=== PATIENT | male | born 1950 | race Caucasian/White ===

== ENCOUNTER 2017-03-16 08:01 | Day surgery (SDC) | payer OTHER, MEDICARE ==
[2017-03-16] MEDS ORDERED: MIDAZOLAM 2 MG/2 ML VIAL IVP ONE (08:16)
[2017-03-16] MEDS ORDERED: PROPOFOL 200 MG/20 ML VIAL IVP ONE (08:16)
[2017-03-16] MEDS ORDERED: NS 500 ML IV ONE (08:16)
[2017-03-16] MEDS ORDERED: fentaNYL 100 MCG/2 ML INJ IVP ONE (08:16)
[2017-03-16] MEDS ORDERED: BENZOCAINE UNIT DOSE SPRAY HURRICAINE MM ONE (08:16)
--- NOTE | 2017-03-16 08:47 | CPEKG ---
Heart Rate: 108 RR Interval: 556 QRSD Interval: 84 QT Interval: 376 QTC Interval: 504 QRS [place]: 5 T Wave [place]: -25 EKG Severity - ABNORMAL ECG - EKG Impression: ATRIAL FIBRILLATION EKG Impression: BORDERLINE T ABNORMALITIES, INFERIOR LEADS EKG Impression: PROLONGED QT INTERVAL Electronically Signed By: Yao Workman 19-Mar-2017 07:49:30
[2017-03-16 09:19] LABS: ANION GAP 15 mEq/L (8-16); CALCIUM 9.8 mg/dL (8.5-10.4); CARBON DIOXIDE 24 mEq/l (22-31); CHLORIDE 101 mEq/L (97-110); CREATININE 1.2 mg/dL (0.7-1.3); GLOMERULAR FILTRATION RATE > 60; GLUCOSE 171 mg/dL (70-100); MAGNESIUM 1.8 mg/dL (1.6-2.3); POTASSIUM 4.4 mEq/L (3.5-5.2); SODIUM 140 mEq/L (134-144)
[2017-03-16] MEDS ORDERED: PROPOFOL 200 MG/20 ML VIAL ONE (09:28)
[2017-03-16 09:36] LABS: APTT 31.6 SEC (23.0-38.0); INR 1.18 (0.83-1.16)
--- NOTE | 2017-03-16 10:00 | CPEKG ---
Heart Rate: 70 RR Interval: 857 P-R Interval: 176 QRSD Interval: 88 QT Interval: 416 QTC Interval: 449 P [place]: 22 QRS [place]: -10 T Wave [place]: -34 EKG Severity - ABNORMAL ECG - EKG Impression: SINUS RHYTHM EKG Impression: SUPRAVENTRICULAR BIGEMINY EKG Impression: BORDERLINE R WAVE PROGRESSION, ANTERIOR LEADS Electronically Signed By: Yao Workman 19-Mar-2017 07:50:25
--- NOTE | 2017-03-16 10:04 | PDANEPAE ---
ANE History of Present Illness h/o A fib new onset ANE Past Medical History - Cardiovascular History Hx Hypertension: Yes Hx Arrhythmias: Yes Hx Chest Pain: No Hx Coronary Artery / Peripheral Vascular Disease: No Hx CHF / Valvular Disease: No Hx Palpitations: Yes - Pulmonary History Hx COPD: No Hx Asthma/Reactive Airway Disease: No Hx Recent Upper Respiratory Infection: No Hx Oxygen in Use at Home: No Hx Sleep Apnea: Yes - Endocrine History Hx Diabetes: Yes Hypothyroid: Yes Obesity: yes ANE Review of Systems Review of systems is: negative - Exercise capacity Exercise capacity: >=4 METS ANE Patient History - Allergies Allergies/Adverse Reactions: No Known Allergies Allergy (Unverified 11/22/15 17:23) - Home Medications Home medications: home medication list seen and reviewed - Anes Hx Anes Hx: no prior problems - Smoking Hx Smoking Status: Never smoked ANE Labs/Vital Signs - Labs Result Diagrams: 03/16/17 08:55 ANE Physical Exam - Airway Neck exam: FROM Mallampati Score: Class 1 Mouth exam: normal dental/mouth exam - Pulmonary Pulmonary: no respiratory distress - Cardiovascular Cardiovascular: irregularly irregular - ASA Status ASA Status: III ANE Anesthesia Plan Anesthesia Plan: GA with mask
--- NOTE | 2017-03-16 10:05 | POSTANESTH ---
Post Anesthetic Evaluation Cardiovascular Status: Normal, Stable Respiratory Status: Normal, Stable Level of Consciousness/Mental Status: Can Participate in Eval Pain Control: Adequate, Prn Tx Ordered Nausea/Vomiting Control: Adequate, Prn Tx Ordered Complications Possibly Related to Anesthesia: None Noted
--- NOTE | 2017-03-16 13:33 | CPR ---
[f rep st] NONINVASIVE CARDIAC PROCEDURE REPORT DATE OF PROCEDURE: 03/16/2017 PROCEDURE PERFORMED: Electrical cardioversion procedure. INDICATIONS: Atrial fibrillation and shortness of breath. CONSENT: Signed. Risks, benefits, and alternatives discussed with patient. He wishes to proceed w ith the procedure. TECHNICAL DIFFICULTIES: None. DESCRIPTION OF PROCEDURE AND RESULTS: Immediately beforehand, a transesophageal echo was done with sedation by Anesthesia. It demonstrated no evidence of cardiac thrombus. He was initially in atria l fibrillation at a ventricular rate of 92 beats per minute and a blood pressure of 126/83. With ad equate deep sedation, he received a single 250 joule synchronized shock with AP pads. This converte d him to sinus rhythm at 73 beats per minute with a post cardioversion blood pressure of 104/71. He awoke from sedation with no new neurological deficits. COMPLICATIONS: None. FINAL IMPRESSIONS: Successful cardioversion of atrial fibrillation to sinus rhythm with single 250 joule synchronized shock. NOTE: The transesophageal echo demonstrated yqnokudu-ac-eshakw mitral regurgitation with anterior m itral valve leaflet pathology. He will get a repeat transthoracic echo in 10 days and see me in [place] in 2 weeks with an EKG. He may be working his way toward mitral valve repair surgery soon. /[id number]/MODL
--- NOTE | 2017-03-19 12:18 | ECHO ---
[id number] + + [address] : : [facility] [address] : : [phone] + + Transesophageal Echocardiographic Report + + :Name: CALVIN WALSH Study Date: 03/16/2017 09:35 AM : : Hospital Admission Number: [id number] : :: 1950 Gender: Male : :Age: 66 yrs Race: WH : :Reason For Study: Eval LV Fx : :History: New onset Atrial Fibrillation : + + Left Ventricle Ejection Fraction = 50-55%. Right Ventricle The right ventricular systolic function is normal. Atria Injection of contrast documented no interatrial shunt. The interatrial septum is intact with no evidence for an atrial septal defect. No left atrial mass or thrombus visualized. No thrombus is detected in the left atrial appendage. Mitral Valve There is a ruptured mitral valve chordae with a flail anterior leaflet. There is no mitral valve stenosis. Moderate to severe MR. Tricuspid Valve There is mild to moderate tricuspid regurgitation. Aortic Valve The aortic valve is normal in structure and function. The aortic valve is trileaflet. There is no aortic stenosis. There is no aortic insufficiency. Pulmonic Valve The pulmonic valve is normal in structure and function. Vessels Normal size ascending thoracic aorta (2.5cm). No dissection flap. Conclusion A 2D transesophageal echocardiogram with color flow Doppler was performed. 1)Low normal LV systolic function with a LVEF of 50-55% and no focal wall motions. 2)Normal RV systolic function. 3)Moderate LAE. 4)No clot in any of four cardiac chambers or BHAVESH. PW 45cm/second in LA appendage. 5)Moderate to severe MR with chordae rupture of A2 with no MAC or MS. 6)Mild-moderate TR noted. 7)Negative IV bubble study. No PFO or ASD. 8)Normal size ascending thoracic aorta (2.5cm) without atheroma or dissection flap. Final Reading Physician: Dave Wang electronically signed on 03/19/2017 12:17 PM Ordering Physician: Dave Wang Performed By: Dave Wang
== END 2017-03-16 13:09 | disposition home or self-care (01) ==
LOC: FCATH 08:01
PROVIDERS: ATTEND Internal Medicine Cardiovascular Disease
PROC: B246ZZ4 Ultrasonography of Right and Left Heart, Transesophageal (ICD-10-PCS; principal; 2017-03-16)
PROC: 5A2204Z Restoration of Cardiac Rhythm, Single (ICD-10-PCS; principal; 2017-03-16)
DX: I48.91 Unspecified atrial fibrillation (principal); I34.0 Nonrheumatic mitral (valve) insufficiency; E11.9 Type 2 diabetes mellitus without complications; E78.5 Hyperlipidemia, unspecified; E03.9 Hypothyroidism, unspecified; K21.9 Gastro-esophageal reflux disease without esophagitis; G47.33 Obstructive sleep apnea (adult) (pediatric); I10 Essential (primary) hypertension
CPT/HCPCS: J2704

== ENCOUNTER → 2017-03-28 | Outpatient (CLI) | payer OTHER, MEDICARE | LOC: BHFA 11:30 | PROVIDERS: ATTEND Internal Medicine Cardiovascular Disease | DX: I48.91 Unspecified atrial fibrillation (principal) ==

== ENCOUNTER 2017-04-17 13:42 | Observation (INO) | payer OTHER, MEDICARE ==
[2017-04-17] MEDS ORDERED: FAMOTIDINE 20 MG TAB PO ONE (13:47)
[2017-04-17] MEDS ORDERED: diphenhydrAMINE 25 MG CAP PO ONE (13:47)
[2017-04-17] MEDS ORDERED: ASPIRIN EC 325 MG TAB PO ONE (13:47)
[2017-04-17] MEDS ORDERED: DIAZEPAM 5 MG TAB PO ONE (13:47)
[2017-04-17] MEDS ORDERED: NS 1,000 ML IV ONE (13:47)
[2017-04-17 14:30] LABS: % IMMATURE GRANULYOCYTES 0.4 % (0.0-1.1); ABSOLUTE IMMATURE GRANULOCYTES 0.03 10^3/uL (0.00-0.10); ADD DIFF? NO; ADD MORPH? NO; ADD SCAN? NO; ATYPICAL LYMPHOCYTE FLAG 0 (0-99); FRAGMENT RBC FLAG 0 (0-99); HEMATOCRIT 50.8 % (40.0-51.0); HEMOGLOBIN 17.5 g/dL (13.7-17.5); LEFT SHIFT FLG 0 (0-99); LIPEMIA HEMOLYSIS FLAG 90 (0-99); MEAN CELL HEMOGLOBIN 30.8 pg (27.9-34.1); MEAN CELL HEMOGLOBIN CONCENTR. 34.4 g/dL (32.4-36.7); MEAN CELL VOLUME 89.3 fL (81.5-99.8); MEAN PLATELET VOLUME 11.2 fL (8.7-11.7); PLATELET CLUMPS FLAG 20 (0-99); PLATELET COUNT 248 10^3/uL (150-400); RED BLOOD CELL COUNT 5.69 10^6/uL (4.40-6.38); RED CELL DISTRIBUTION WIDTH 12.9 % (11.5-15.2)
[2017-04-17 14:42] LABS: INR 0.99 (0.83-1.16)
--- NOTE | 2017-04-17 14:47 | CPEKG ---
Heart Rate: 86 RR Interval: 698 QRSD Interval: 96 QT Interval: 400 QTC Interval: 479 QRS [place]: 12 T Wave [place]: -24 EKG Severity - ABNORMAL ECG - EKG Impression: ATRIAL FIBRILLATION EKG Impression: BORDERLINE T ABNORMALITIES, INFERIOR LEADS Electronically Signed By: Celso Gonzalez 17-Apr-2017 15:15:57
[2017-04-17 14:52] LABS: ANION GAP 14 mEq/L (8-16); CALCIUM 10.2 mg/dL (8.5-10.4); CARBON DIOXIDE 25 mEq/l (22-31); CHLORIDE 101 mEq/L (97-110); CHOLESTEROL 157 mg/dL (140-220); CHOLESTEROL/HDL RATIO 3.27 RATIO (1.00-4.97); CREATININE 1.3 mg/dL (0.7-1.3); GLOMERULAR FILTRATION RATE 55; GLUCOSE 252 mg/dL (70-100); HIGH DENSITY LIPOPROTEIN 48 mg/dL (40-65); LDL/HDL RATIO 1.83 RATIO (1.00-3.64); LOW DENSITY LIPOPROTEIN 88 mg/dL (80-100); MAGNESIUM 1.9 mg/dL (1.6-2.3); NON-HIGH DENSITY LIPOPROTEIN 109 mg/dL (90-129); POTASSIUM 4.1 mEq/L (3.5-5.2); SODIUM 140 mEq/L (134-144); TRIGLYCERIDE 107 mg/dL (40-150); VERY LOW DENSITY LIPOPROTEINS 21 mg/dL (8-25)
[2017-04-17] MEDS ORDERED: LIDOCAINE 1% 300 MG/30 ML SDV ONE (15:09)
[2017-04-17] MEDS ORDERED: fentaNYL 100 MCG/2 ML INJ ONE (15:09)
[2017-04-17] MEDS ORDERED: IOPAMIDOL (ISOVUE-370) 150 ML BTL IV ONE (15:10)
[2017-04-17] MEDS ORDERED: MIDAZOLAM 2 MG/2 ML VIAL ONE (15:10)
--- NOTE | 2017-04-17 16:11 | PDHPUP ---
History & Physical Update H&P update statement: This history and physical update is based on an assessment of the patient which was completed after admission or registration (within 24 hours), but prior to the surgery/procedure. H&P update: H&P reviewed & patient examined, no change in patient's condition since H&P completed
--- NOTE | 2017-04-17 16:12 | PDPROPOC ---
Sedation Plan of Care Sedation Plan of Care: vital signs stable, mental status noted, patient educated of risks, benefits, alternatives, patient can tolerate sedation ASA Classification: ASA 2 Planned drugs: fentanyl, midazolam Mallampati Score: Class 2 Mallampati Reference Image: Patient passed 3-3-2 rule?: Yes
[2017-04-17] MEDS ORDERED: ONDANSETRON 4 MG/2 ML VIAL IVP PRN (17:49)
[2017-04-17] MEDS ORDERED: ONDANSETRON DISINTEGRATING 4 MG TAB PO PRN (17:49)
[2017-04-17] MEDS ORDERED: NITROGLYCERIN 0.4 MG BTL SL PRN (17:49)
[2017-04-17] MEDS ORDERED: ATROPINE SULFATE 1 MG/10 ML SYR IVP PRN (17:49)
[2017-04-17] MEDS ORDERED: HYDROCODONE/APAP 5/325 TAB PO PRN (17:49)
[2017-04-17] MEDS ORDERED: ACETAMINOPHEN 325 MG TAB PO PRN (17:49)
[2017-04-17] MEDS ORDERED: NS 1,000 ML IV SCH (18:00)
[2017-04-17] MEDS ORDERED: NAPROXEN SODIUM 220 MG TAB PO PRN (18:39)
[2017-04-17] MEDS ORDERED: TROLAMINE SALICYLATE 85 GM CRTUBE TP PRN (18:39)
--- NOTE | 2017-04-17 18:45 | PDDXCAT ---
Diagnostic Cath Note - . Date: 04/17/17 Reports Analysis Manager: Dio Supervisor Tunnel Heading: Dio Indication: other (Severe mitral regurgitation, NYHA class II CHF symptoms, and anticipated need for mitral valve repair/replacement.) - Procedure Access: right groin Procedure: left heart catheterization, coronary angiography, left ventriculogram , right heart catheterization - Materials Left Heart Cath size: 6F Left Heart Cath materials: standard multipack (JL4, JR4, pigtail) Right Heart Cath size: 7F Right Heart Cath materials: PWP catheter - Findings-Left Heart Catheterization LM: Normal. LAD: Ectasia and mild irregularites. LCX: Ectasia and mild irregularites. RCA: Ectasia and mild irregularites. EDP: 12 mmHg LVEF: 35% Wall motion: Global hypokinesis. - Findings-Right Heart Catheterization RA: 8 mmHg RV: 28/6 mmHg PA: 30/14/22 mmHg O2 sat 74.0% PAOP: 12 mmHg AO: 166/66/86 mmHg O2 sat 97.3% CO: 3.8 L/min CI: 1.97 L/min/sq mtr Complications: None Estimated blood loss: <50ml Closure method: Angioseal Assessment: 1) Nonischemic cardiomyopathy. 2) Gjp-rgny-edybhsja coronary atherosclerosis.
[2017-04-17] MEDS: APIXABAN 5 MG TAB PO SCH (20:51)
[2017-04-17] MEDS ORDERED: FERROUS SULFATE 325 MG TAB PO SCH (21:00)
[2017-04-17] MEDS ORDERED: CETIRIZINE 10 MG TAB PO SCH (21:00)
[2017-04-17] MEDS ORDERED: PRAVASTATIN SODIUM 10 MG TAB PO SCH (21:00)
[2017-04-18] MEDS ORDERED: LEVOTHYROXINE 100 MCG TAB PO SCH (06:00)
[2017-04-18 07:36] VITALS: BP 130/82; PULSE 83; RESP 21; TEMP 97.8; O2SAT 92
[2017-04-18] MEDS ORDERED: FUROSEMIDE 20 MG TAB PO SCH (09:00)
[2017-04-18] MEDS ORDERED: CYANO/VITAMIN B12 1000 MCG TAB PO SCH (09:00)
[2017-04-18] MEDS ORDERED: glipiZIDE 5 MG TAB PO SCH (09:00)
[2017-04-18] MEDS ORDERED: DILTIAZEM XR 240 MG CAP PO SCH (09:00)
[2017-04-18] MEDS ORDERED: MULTIVITAMINS 1 EACH TAB PO SCH (09:00)
[2017-04-18] MEDS: APIXABAN 5 MG TAB PO SCH (09:47)
[2017-04-18] MEDS ORDERED: FLU VACC QS 2017-18 (3YR+)/PF 0.5 ML SYR (FLUARIX QUAD) IM ONE (10:50)
--- NOTE | 2017-04-18 11:49 | GDS ---
[f rep st] DISCHARGE SUMMARY DISCHARGE DIAGNOSES: 1. Ijyxwpdb-us-bezkuz mitral regurgitation with prolapsing A-2 segment. 2. Cardiomyopathy. 3. Persistent atrial fibrillation. 4. Schatzki' ring present in posterior oropharynx. 5. Type 2 diabetes mellitus. 6. Hypertension. 7. Dyslipidemia. PROCEDURES: 04/17/2017, left and right heart catheterization pre open heart surgery for mitral valve repair. Left heart catheterization showed normal left main with ectasia and mild irregularities pre sent in the left anterior descending, left circumflex, and right coronary artery. Left ventricular e nd-diastolic pressure of 12 mmHg. Left ventricular ejection fraction of 35% with global hypokinesis. Right heart catheterization findings of right atrial pressure of 8 mmHg, right ventricular pressure of 28/6 mmHg, pulmonary artery pressure of 30/14/22 mmHg with oxygen saturation of 74%. PA to PF of 12 mmHg. AO of 166/66/86, cardiac output of 3.8 L/minute. Cardiac index of 1.97 L/minute per sq m. BRIEF HISTORY: Please see dictated H and P from Dr. Wang for complete details. In brief, the patie nt is a 67-year-old male with persistent atrial fibrillation, type 2 diabetes mellitus, and moderate- to-severe MR. He had a right and left heart catheterization pre-surgical evaluation for his moderate -to-severe MR, and results are as dictated above. On day of discharge, patient denies any groin disc omfort, chest pain, or dyspnea. He has noted irregular pulse but has not been feeling syncope or pre syncope. PHYSICAL EXAMINATION: VITAL SIGNS: On day of discharge, blood pressure 130/82, heart rate of 83, re spirations 21, O2 saturation 92% on room air, and temp of 97.8 degrees Fahrenheit. GENERAL: Renzo p leasant man in no apparent distress. EYES: PERRL. HEART: Irregularly irregular. LUNGS: Clear. Right groin site without ecchymosis or bruit present. EXTREMITIES: He has a 2+ PT pulse. LABORATORY DATA: CBC: WBC 7.31, hemoglobin 17.5, hematocrit 50.8, platelet count 248. BMP: Sodium 140, potassium 4.1, chloride 101, CO2 25, BUN 22, creatinine 1.3, glucose 252. NT proBNP of 350. T riglycerides 107, LDL/cholesterol of 88, total cholesterol of 157, and HDL 48. RESULTS PENDING: None. DIET: Per previous. ACTIVITY: Groin precautions reviewed. DISCHARGE MEDICATIONS: Please see med reconciliation for complete details. He is being discharged o n all his home medications. This includes Tylenol, Eliquis, Celebrex, Zyrtec, diltiazem, ferrous sul fate, Lasix, glipizide, levothyroxine, Flonase, naproxen, multivitamin, Aspercreme, simvastatin, and vitamin B12. He is advised to resume his metformin on 04/20/2017 with a.m. dose. DISCHARGE INSTRUCTIONS: 1. Groin precautions as reviewed. 2. Follow up with Dr. Wang as scheduled. 3. Follow up with Dr. Us as scheduled. /[id number]/MODL
--- NOTE | 2017-04-18 15:42 | ASDISCHSUM ---
Discharge Information Plan Status:Home with No Needs Medically Cleared to Leave:04/18/2017 Discharge Date:04/18/2017 11:35 AM CM D/C Disposition: ADT D/C Disposition:Home, Routine, Self-Care Projected Discharge Date:04/18/2017 12:00 AM Transportation at D/C: Discharge Delay Reason: Follow-Up Date:04/18/2017 12:00 AM Discharge Slot: Final Diagnosis: Placement Information Patient Contact Information Contact Name:BOB Relationship: Address[address] City:[place] Alternate Phone: [facility]/Zip Code:[place] [address] Email: Financial Information Financial Class: Primary Plan Desc:MEDICARE OUTPATIENT Primary Plan Number:[id number] Secondary Plan Desc:[employer]/MDR SUPPLEMENT Secondary Plan Number:[id number] Assessment Information Intervention Information Intervention Type:*THOMPSON-Signed Date of Service:04/18/2017 09:31 AM Patient Type:Observation Staff Member:Verónica Hand Hours: Discipline: Severity: Comment:
== END 2017-04-18 11:35 | disposition home or self-care (01) ==
LOC: FCATH 13:42 → F2W 17:49
PROVIDERS: ADMIT Internal Medicine Interventional Cardiology; ATTEND Internal Medicine Interventional Cardiology
DX: I34.0 Nonrheumatic mitral (valve) insufficiency (principal); Z01.810 Encounter for preprocedural cardiovascular examination; I48.1 Persistent atrial fibrillation; I42.9 Cardiomyopathy, unspecified; K22.2 Esophageal obstruction; E11.9 Type 2 diabetes mellitus without complications; Z23 Encounter for immunization
CPT/HCPCS: 90686; 93005; 93460; C1760; G0008; J1644; J2250; J3010; Q9967

== ENCOUNTER → 2017-05-03 | Outpatient (CLI) | payer OTHER, MEDICARE | LOC: BHFA 11:30 | PROVIDERS: ATTEND Internal Medicine Cardiovascular Disease | DX: Z01.818 Encounter for other preprocedural examination (principal) ==

== ENCOUNTER 2017-05-10 06:45 | Inpatient (IN) | payer OTHER, MEDICARE ==
[2017-05-07 13:16] LABS: HEMOGLOBIN A1C 7.4 % (4.0-6.0)
[~2017-05-10 06:45] MED LIST: ADENOSINE 6 MG/2 ML VIAL ONE; ALBUMIN 5% 250 ML BOTTLE IV ONE; AMINOCAPROIC ACID 5 GM/20 ML VIAL IV ONE; AMINOCAPROIC ACID 5 GM/20 ML VIAL ONE; AMIODARONE HCL 150 MG/3 ML VIAL ONE; CALCIUM CHLORIDE 1 GM/10 ML INJ ONE; CITRATE DEXTROSE SOLN 500 ML BAG MISC ONE; CITRATE DEXTROSE SOLN 500 ML BAG ONE; DOBUTamine/DEXTROSE 250 ML IV ONE; DOPamine/DEXTROSE/250 ML BAG IV ONE; HEPARIN 10,000 UNIT/10 ML MDV ONE; INSULIN REGULAR HUMAN 100 UNIT in NS 100 ML IV ONE; LIDOCAINE 1% 5 ML SDV ID PRN; LIDOCAINE 2% 100 MG/5 ML SYR ONE; MAGNESIUM SULFATE 1 GM/2 ML VIAL ONE; MANNITOL 25% 12.5 GM/50 ML VIAL IV ONE; MILRINONE/DEXTROSE/100 ML BAG IV ONE; NA BICARBONATE 50 MEQ/50 ML VIAL ONE; NOREPINEPHRINE BITARTRATE 16 MG in NS 250 ML IV ONE; PHENYLEPHRINE HCL 50 MG in NS 250 ML IV ONE; POTASSIUM Cl (KCl) 20 MEQ/50 ML BAG IV ONE; PROTAMINE SULFATE 50 MG/5 ML VIAL IVP ONE; SODIUM BICARBONATE 20 MEQ, LIDOCAINE 1% 10 ML in NORMOSOL-R 1,000 ML MISC ONE; ceFAZolin 1 GM VIAL ONE; ceFAZolin 2 GM in D5W 100 ML IV ONE; ceFAZolin 2 GM/DEXTROSE 100 ML IV ONE; methylPREDNISolone SOD SUCC 1 GM/8 ML VIAL ONE; niCARdipine/NACL 200 ML IV ONE; niCARdipine/NACL/200 ML BAG IV ONE
[2017-05-10] MEDS ORDERED: LIDOCAINE 1% 2 ML INJ ONE (07:11)
--- NOTE | 2017-05-10 07:43 | PDHPUP ---
History & Physical Update H&P update statement: This history and physical update is based on an assessment of the patient which was completed after admission or registration (within 24 hours), but prior to the surgery/procedure. H&P update: H&P reviewed & patient examined H&P changes: More aware of breathlessness upon exertion.
--- NOTE | 2017-05-10 07:47 | PDANEPAE ---
ANE History of Present Illness here for mvr, maze poss TR ANE Past Medical History - Cardiovascular History Hx Hypertension: Yes Hx Arrhythmias: Yes Hx Chest Pain: No Hx Coronary Artery / Peripheral Vascular Disease: Yes Hx CHF / Valvular Disease: Yes Hx Palpitations: Yes Cardiovascular History Comment: cardioversion. "BP systolic runs lower". A FIB - Pulmonary History Hx COPD: No Hx Asthma/Reactive Airway Disease: Yes Hx Recent Upper Respiratory Infection: No Hx Oxygen in Use at Home: No Hx Sleep Apnea: Yes Sleep Apnea Screening Result - Last Documented: Positive Pulmonary History Comment: asthma since childhood-no inhalers. Dx w/ALEC prior to significant weight loss. Does not use CPAP now-no ALEC now. - Neurologic History Hx Cerebrovascular Accident: No Hx Seizures: No Hx Dementia: No - Endocrine History Hx Diabetes: Yes Endocrine History Comment: Hgb A1C 7.4 Apr "blood sugar jumps around" - Renal History Hx Renal Disorders: No - Liver History Hx Hepatic Disorders: No - Neurological & Psychiatric Hx Hx Neurological and Psychiatric Disorders: Yes Neurological / Psychiatric History Comment: chronic low back pain-bilat -uses topicals. Pinched nerve L arm due to cervical spine. - Cancer History Hx Cancer: No - Congenital Disorder History Hx Congenital Disorders: No - GI History Hx Gastrointestinal Disorders: Yes Gastrointestinal History Comment: TUMS for GERD - Other Health History Other Health History: Tinnitus. Hayfever,sinus drainage. - Chronic Pain History Chronic Pain: No - Surgical History Prior Surgeries: trigger finger sx-(3) fingers. Appy. LASIK. Tonsillectomy ANE Review of Systems Review of systems is: negative Review of Systems: - Exercise capacity Exercise capacity: <4 METS, >=4 METS METS (RN): 4 METS ANE Patient History - Allergies Allergies/Adverse Reactions: No Known Allergies Allergy (Verified 05/08/17 11:44) - Home Medications Home medications: home medication list seen and reviewed Home Medications: Apixaban [Eliquis] 5 mg PO BID 03/16/17 [Last Taken 05/02/17 20:00] Cyanocobalamin [Vitamin B12 (*)] 5,000 mcg PO DAILY 03/16/17 [Last Taken 07:00] Diltiazem HCl [Cartia XT 240mg] 240 mg PO DAILY 03/16/17 [Last Taken 05/09/17 07 :00] Ferrous Sulfate [Ferrous Sulf 325 MG (*)] 325 mg PO HS 03/16/17 [Last Taken ] Fluticasone Nasal [Flonase Nasal [place]] 2 sprays NASAL HS 03/16/17 [Last Taken 05/08/17] Herbals/Supplements -Info Only 1 ea PO DAILY 03/16/17 [Last Taken 05/09/17 18:00 ] Levothyroxine [Synthroid 100 mcg (*)] 100 mcg PO DAILY06 03/16/17 [Last Taken 07:00] Multivitamins [Multivitamin (*)] 1 each PO DAILY 03/16/17 [Last Taken 05/09/17] Naproxen Sodium [Aleve 220 MG (*)] 220 mg PO BID PRN 03/16/17 [Last Taken 08:00] Simvastatin [Zocor] 5 mg PO HS 03/16/17 [Last Taken 05/09/17] Trolamine Salicylate [Aspercreme] 1 traci TP DAILY PRN 03/16/17 [Last Taken ] glipiZIDE [Glipizide] 5 mg PO DAILY 03/16/17 [Last Taken 05/09/17 07:00] Acetaminophen [Tylenol 325mg (*)] 325 mg PO BID PRN 04/17/17 [Last Taken ] Cetirizine [ZyrTEC 10 mg (*)] 10 mg PO HS 04/17/17 [Last Taken 05/09/17 18:00] Furosemide [Lasix 20 MG (*)] 20 mg PO DAILY 04/17/17 [Last Taken 05/09/17 07:00] Aspirin 81mg (*) 05/08/17 [Last Taken 05/09/17 07:00] Lovenox 05/08/17 [Last Taken 05/09/17 07:00] Metformin HCl 05/08/17 [Last Taken 05/08/17] - NPO status NPO Status: no food or drink >8 hours NPO Since - Liquids (Date): 05/09/17 NPO Since - Liquids (Time): 23:00 NPO Since - Solids (Date): 05/09/17 NPO Since - Solids (Time): 23:00 - Smoking Hx Smoking Status: Never smoked ANE Labs/Vital Signs - Vital Signs Blood Pressure: 121/93 Heart Rate: 88 Respiratory Rate: 14 O2 Sat (%): 94 Height: 167.64 cm Weight: 83.461 kg ANE Physical Exam - Airway Neck exam: FROM Mallampati Score: Class 1 - Pulmonary Pulmonary: no respiratory distress - Cardiovascular Cardiovascular: regular rate and rhythym - ASA Status ASA Status: IV ANE Anesthesia Plan Anesthesia Plan: general endotracheal anesthesia Lines/Monitors: central line, HOLLIE
[2017-05-10] MEDS ORDERED: MIDAZOLAM 2 MG/2 ML VIAL IVP ONE ×2 (07:50→08:03)
[2017-05-10] MEDS: MUPIROCIN 2% 22 GM OINT NS SCH ×3 (07:52→20:35)
[2017-05-10] MEDS ORDERED: fentaNYL 100 MCG/2 ML INJ ONE ×3 (08:08→12:46)
[2017-05-10] MEDS ORDERED: PROPOFOL/EMULSION 500 MG/50 ML BOTTLE IV ONE (08:10)
[2017-05-10] MEDS ORDERED: KETAMINE 100 MG/10 ML SYR ONE (08:10)
[2017-05-10] MEDS ORDERED: epHEDrine SULFATE 10 MG/ML SYR ONE (08:12)
[2017-05-10] MEDS ORDERED: PHENYLEPHRINE HCL 100 MCG/ML SYR ONE (08:12)
[2017-05-10] MEDS ORDERED: HYDROmorphONE/DILAUDID 2 MG/ML INJ ONE (09:07)
[2017-05-10] MEDS ORDERED: ALBUMIN 5% 250 ML BOTTLE IV ONE (11:48)
[2017-05-10] MEDS ORDERED: MINERAL OIL 10 ML VIAL ONE (11:53)
[2017-05-10] MEDS ORDERED: PROPOFOL 200 MG/20 ML VIAL ONE (12:42)
[2017-05-10] MEDS ORDERED: LACTULOSE 20 GM/30 ML UDCUP PO PRN (12:48)
[2017-05-10] MEDS ORDERED: MEPERIDINE 25 MG/ML SYR IVP PRN (12:48)
[2017-05-10] MEDS ORDERED: MAGNESIUM SULF 2 GM/WATER 50 ML IV ONE (12:48)
[2017-05-10] MEDS ORDERED: BISACODYL 10 MG SUPP PR PRN (12:48)
[2017-05-10] MEDS ORDERED: ACETAMINOPHEN 650 MG SUPP PR PRN (12:48)
[2017-05-10] MEDS ORDERED: POLYETHYLENE GLYCOL 3350 17 GM PKT PO PRN (12:48)
[2017-05-10] MEDS ORDERED: SODIUM CL NASAL 45 ML BTL EACHNARE PRN (12:48)
[2017-05-10] MEDS ORDERED: D50W 25 GM/50 ML SYR IVP PRN (12:48)
[2017-05-10] MEDS ORDERED: MAGNESIUM HYDROXIDE 30 ML UDCUP PO PRN (12:48)
[2017-05-10] MEDS ORDERED: ACETAMINOPHEN 325 MG TAB PO PRN (12:48)
[2017-05-10] MEDS ORDERED: ONDANSETRON DISINTEGRATING 4 MG TAB PO PRN (12:48)
[2017-05-10] MEDS ORDERED: POTASSIUM Cl (KCl) 50 ML IV PRN (12:48)
[2017-05-10] MEDS ORDERED: ALBUMIN 5% 250 ML IV PRN (12:48)
[2017-05-10] MEDS ORDERED: CEPACOL LOZENGE PO PRN (12:48)
[2017-05-10] MEDS ORDERED: METOCLOPRAMIDE 10 MG/2 ML VIAL IVP PRN (12:48)
[2017-05-10] MEDS ORDERED: PANTOPRAZOLE SODIUM 40 MG in NS 100 ML IV ONE (12:48)
[2017-05-10] MEDS ORDERED: NS 1,000 ML IV SCH (13:00)
[2017-05-10] MEDS ORDERED: INSULIN REGULAR HUMAN 100 UNIT in NS 100 ML IV SCH (13:00)
[2017-05-10] MEDS ORDERED: D10W 250 ML PRN HYPOGLYCEMIA IV (13:30)
[2017-05-10] MEDS ORDERED: ceFAZolin 2 GM/DEXTROSE 100 ML IV SCH (14:00)
[2017-05-10] MEDS ORDERED: niCARdipine/NACL 200 ML IV SCH ×2 (14:30→15:30)
[2017-05-10] MEDS: fentaNYL 100 MCG/2 ML INJ IVP PRN ×2 (14:41→19:05)
[2017-05-10] MEDS: ceFAZolin 2 GM in D5W 100 ML IV SCH (17:35)
[2017-05-10] MEDS ORDERED: POTASSIUM Cl (KCl) 20 MEQ in NS 50 ML IV PRN (18:00)
[2017-05-10 19:32] LABS: CALCULATED OXYGEN SATURATION 98 % (92-95); O2 CONCENTRATIION 80 % (0-100)
--- NOTE | 2017-05-10 19:48 | GOP ---
[f rep st] OPERATIVE REPORT DATE OF OPERATION: SURGEON: Gómez Us DO ART HISTORY PROFESSOR: Montrell Lynn PA-C ANESTHESIOLOGIST: Mckay Carnes MD PREOPERATIVE DIAGNOSIS: 1. Severe mitral insufficiency. 2. Cardiomyopathy, valvular. 3. Longstanding persistent atrial fibrillation. POSTOPERATIVE DIAGNOSIS: 1. Severe mitral insufficiency. 2. Cardiomyopathy, valvular. 3. Longstanding persistent atrial fibrillation. PROCEDURE PERFORMED: 1. Cruz Maze-4 procedure with testing, both left and right, with cryoablation and radiofrequency. 2. Mitral valve replacement with chordal sparing, with a 29 Magna bioprosthesis. FINDINGS: Patient was referred for mitral valve surgery and a Cruz Maze-4, consideration for tricuspi d valve ring was also discussed. DESCRIPTION OF PROCEDURE: He was consented for surgery, brought to the operating room, intubated, mo nitoring lines were placed. He was prepped and draped in sterile classical manner. Intraoperative T EE revealed flail anterior leaflet with evidence of cord rupture, calcified posterolateral papillary muscle. He was prepped and draped in sterile classical manner. Sternotomy was performed. He was he parinized and cannulated. Cardiopulmonary bypass was begun and then we encircled both pulmonary vein s before cross-clamping, with approximately 9 or 10 radiofrequency ablations performed, which was the n tested for entrance block and both confirmed to be negative. We then arrested the heart with anteg rade cardioplegia, opened the left atrium through the right superior pulmonary vein and performed cry oablation on the roof in 4 lesions for 3 minutes, and then to the isthmus for 3 minutes, and then the coronary sinus for 3 minutes, connecting it with the isthmus line. We then inspected the valve. There were ruptured chordae to the anterior leaflet. The tip of the an terior leaflet was somewhat calcified, and a posterior papillary muscle was calcified, and appeared t o be elongated. Distention of the ventricle revealed predominantly anterior leaflet pathology. I th en placed a 30 annuloplasty ring, which showed good coaptation; however, with distention of the ventr icle, the right commissure and most of the anterior leaflet prolapsed. I attempted to reconstruct ch ordae to the anterior leaflet; however, the papillary muscle was heavily calcified. I was concerned that the long-term durability in this fibroelastic valve would not be adequate; for that reason, I el ected to replace it with chordal sparing, utilizing a 29 Magna bioprosthesis with horizontal mattress sutures. It was secured with Cor-Knots. The left atrium was closed. The left atrial appendage was opened externally, and an ablation line to the left superior pulmonary vein was performed with radio frequency as well. An AtriClip size 35 was placed across the base of the appendage without evidence of leak. We then began rewarming. The cross-clamp was removed with suction on the ascending aortic vent in Tr endelenburg. We then opened the right atrium and performed the superior and inferior vena caval line s and a free wall lesion utilizing radiofrequency, and then continuation of the vertical atriotomy to the isthmus, crossing the valve with 3 minutes of cryoablation. The right atrium was closed in 2-la gavino fashion. The cross-clamp had been removed. Spontaneous cardiac activity was noted to resume. T he patient resumed normal sinus rhythm. He was A-paced at a slightly higher rate. V-wires were plac ed. The heparin was reversed with protamine. The cannula was removed and oversewn. Two mediastinal and 1 right pleural drain were placed. The thymic fat and pericardium were closed. The chest was c losed in standard fashion. Patient was extubated in the OR and returned to ICU in stable condition. /[id number]/MODL
[2017-05-10] MEDS: SENNOSIDES/DOCUSATE SODIUM TAB PO SCH (20:35)
[2017-05-10 23:22] LABS: HEMATOCRIT 35.3 % (40.0-51.0); HEMOGLOBIN 12.4 g/dL (13.7-17.5); MEAN CELL HEMOGLOBIN CONCENTR. 35.1 g/dL (32.4-36.7); MEAN CELL VOLUME 91.2 fL (81.5-99.8); RED BLOOD CELL COUNT 3.87 10^6/uL (4.40-6.38); RED CELL DISTRIBUTION WIDTH 13.4 % (11.5-15.2)
[2017-05-11] MEDS: fentaNYL 100 MCG/2 ML INJ IVP PRN ×2 (00:13→03:49)
[2017-05-11] MEDS: ceFAZolin 2 GM in D5W 100 ML IV SCH ×3 (00:18→16:31)
[2017-05-11] MEDS: HYDROCODONE/APAP 5/325 TAB PO PRN ×4 (03:43→19:58)
[2017-05-11 05:04] LABS: % IMMATURE GRANULYOCYTES 0.6 % (0.0-1.1); ABSOLUTE IMMATURE GRANULOCYTES 0.11 10^3/uL (0.00-0.10); ADD DIFF? NO; ADD MORPH? NO; ADD SCAN? NO; ATYPICAL LYMPHOCYTE FLAG 0 (0-99); FRAGMENT RBC FLAG 0 (0-99); HEMATOCRIT 34.1 % (40.0-51.0); HEMOGLOBIN 11.7 g/dL (13.7-17.5); LEFT SHIFT FLG 10 (0-99); LIPEMIA HEMOLYSIS FLAG 90 (0-99); MEAN CELL HEMOGLOBIN 31.5 pg (27.9-34.1); MEAN CELL HEMOGLOBIN CONCENTR. 34.3 g/dL (32.4-36.7); MEAN CELL VOLUME 91.9 fL (81.5-99.8); MEAN PLATELET VOLUME 11.4 fL (8.7-11.7); PLATELET CLUMPS FLAG 0 (0-99); PLATELET COUNT 129 10^3/uL (150-400); RED BLOOD CELL COUNT 3.71 10^6/uL (4.40-6.38); RED CELL DISTRIBUTION WIDTH 13.5 % (11.5-15.2)
[2017-05-11 05:12] LABS: INR 1.06 (0.83-1.16); PROTIME(PATIENT) 13.7 SEC (12.0-15.0)
[2017-05-11 05:18] LABS: CALCIUM 7.7 mg/dL (8.5-10.4); CARBON DIOXIDE 24 mEq/l (22-31); CHLORIDE 106 mEq/L (97-110); GLOMERULAR FILTRATION RATE > 60; GLUCOSE 146 mg/dL (70-100); POTASSIUM 4.4 mEq/L (3.5-5.2)
[2017-05-11] MEDS: ONDANSETRON 4 MG/2 ML VIAL IVP PRN (05:43)
[2017-05-11] MEDS: HEPARIN 5,000 UNIT/0.5 ML SYR SC SCH ×3 (05:51→22:38)
[2017-05-11] MEDS: LEVOTHYROXINE 100 MCG TAB PO SCH (05:54)
[2017-05-11 06:29] LABS: CALCIUM 7.8 mg/dL (8.5-10.4); CARBON DIOXIDE 23 mEq/l (22-31); CHLORIDE 105 mEq/L (97-110); GLOMERULAR FILTRATION RATE > 60; GLUCOSE 158 mg/dL (70-100); POTASSIUM 4.5 mEq/L (3.5-5.2)
[2017-05-11] MEDS ORDERED: FUROSEMIDE 20 MG/2 ML VIAL IVP ONE (07:30)
--- NOTE | 2017-05-11 07:41 | SOAPPROG ---
SOAP Progress Note Assessment/Plan: Assessment: POD#1 MVR #29 [place] Magna bovine bioprosthesis, CoxMaze IV procedure Sx severe MR - Flail A2 with calcified subchordal apparatus not amenable to repair. Replaced with a tissue valve. Antithrombotic prophylaxis as per Maze. Longstanding persistent AF - Addressed with CM4. Postop rhythm sinus with controlled rates. No backup pacing. AF prophylaxis with BB as allowed by BP. Antithrombotic prophylaxis with Coumadin. Target INR 2-3. Duration TBD at 3 mo as per Maze protocol. Valvular cardiomyopathy with LVSD and chronic class II sCHF - Off CPB without inotropic support. Extubated in the OR. Moderate volume overload well tolerated. Low dose nicardipine initiated this am for relative HTN but to be stopped as MAP < 105 acceptable for renal protection. Staggered reintroduction of heart failure regimen as tolerated. Postop hyponatremia - Exacerbated by ligation left atrial appendage and fluid overload (+7kg). Diuresis and fluid restriction for now. Follow. Acute expected blood loss anemia - Stable. No transfusions required. DM2 - preop A1c of 7.4%. Postop hyperglycemia managed with low dose insulin gtt. Transition to SSI/orals in progress. Nonobstructive CAD - Ectatic vessels w mild luminal irregs. Secondary prevention w ASA, BB, statin. ALEC - Stable. CPAP prn given hx mask intolerance. Plan: Stop nicardipine. Lasix 20 mg IV x 1. Start metoprolol tartrate 12.5 mg BID w conservative hold parameters. Start coumadin. 5 mg today. Routine POD#1 orders re drains, orals and mobility. Tx to PCU later today. 05/11/17 07:06 Subjective: Doing ok. Able to sleep a little. Pain adequately controlled. Tolerating sips/ chips. No dizziness. Objective: Vital Signs Temp Pulse Resp BP Pulse Ox 37 C 72 18 135/88 H 93 05/11/17 04:00 05/11/17 06:00 05/11/17 06:00 05/11/17 06:00 05/11/17 06:00 Laboratory Results 05/11/17 04:55 05/11/17 06:07 05/10/17 05/11/17 05/12/17 05:59 05:59 05:59 Intake Total 1039 Output Total 1900 Balance -861 PT 13.7 SEC (12.0-15.0) 05/11/17 04:55 INR 1.06 (0.83-1.16) 05/11/17 04:55 Pretty out yest. Holding SR w occ PVC. Upward creeping SBP into 140s early this am for which started on nicardipine 5 mg. CVPs 12-13. Adequate UOP. 1Lpm suppl O2 req. CXR-> No PTX, hypoventilation w basilar atelectasis, min pulm vasc congestion. No sig CTOP. Labs as expected. 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
[2017-05-11] MEDS ORDERED: ASPIRIN 81 MG CHEWABLE TAB PO SCH (09:00)
[2017-05-11] MEDS ORDERED: ASPIRIN 81 MG CHEWABLE TAB TUBE PRN (09:00)
[2017-05-11 09:06] LABS: POTASSIUM 4.3 mEq/L (3.5-5.2)
[2017-05-11] MEDS: MUPIROCIN 2% 22 GM OINT NS SCH ×2 (09:30→20:04)
[2017-05-11] MEDS: ASPIRIN 81 MG CHEWABLE TAB PO SCH (09:50)
[2017-05-11] MEDS: SENNOSIDES/DOCUSATE SODIUM TAB PO SCH ×2 (09:50→19:57)
[2017-05-11] MEDS: PANTOPRAZOLE SODIUM 40 MG TAB PO SCH (09:50)
[2017-05-11] MEDS ORDERED: OXYCODONE/APAP 5/325 TAB PO PRN (10:57)
[2017-05-11] MEDS ORDERED: TROLAMINE SALICYLATE 85 GM CRTUBE TP PRN (11:02)
[2017-05-11] MEDS ORDERED: CETIRIZINE 10 MG TAB PO PRN (11:02)
[2017-05-11] MEDS ORDERED: D50W 25 GM/50 ML SYR IVP PRN (11:05)
[2017-05-11] MEDS ORDERED: INSULIN GLARGINE 100 UNITS/ML SYRINGE SC ONE (11:30)
[2017-05-11] MEDS: INSULIN LISPRO 100 UNIT/ML SC SCH ×2 (12:25→17:52)
[2017-05-11] MEDS: CALCIUM CARBONATE 500 MG CHEWABLE TAB PO PRN (12:25)
[2017-05-11 13:03] LABS: POTASSIUM 4.1 mEq/L (3.5-5.2)
--- NOTE | 2017-05-11 14:38 | ASMTCMCOM ---
CM Note CM Note Notes: Pt is s/p MVR, POD #1. Reviewed chart and d/w RN. Anticipate pt will dc home w/ and follow up w/cardiac rehab. CM w/f for any changes/needs. Date Signed: 05/11/2017 02:37 PM Electronically Signed By:Lorenza Tompkins RN
[2017-05-11] MEDS ORDERED: WARFARIN SODIUM 5 MG TAB PO ONE (16:00)
[2017-05-11 18:36] LABS: ANION GAP 7 mEq/L (8-16); SODIUM 135 mEq/L (134-144)
[2017-05-11 19:07] LABS: ANION GAP 10 mEq/L (8-16); SODIUM 140 mEq/L (134-144)
[2017-05-11] MEDS: PRAVASTATIN SODIUM 10 MG TAB PO SCH (19:58)
[2017-05-11] MEDS: METOPROLOL TARTRATE 25 MG TAB PO SCH (19:58)
[2017-05-11] MEDS: FLUTICASONE NASAL 120 SPRAYS/16 GM MDI EACHNARE SCH (20:04)
[2017-05-11] MEDS ORDERED: NON-FORMULARY NEW DRUG (Simvastatin [Zocor] 5 MG) PO SCH (21:00)
[2017-05-11] MEDS: traMADol 50 MG TAB PO PRN (22:48)
[2017-05-12] MEDS: ceFAZolin 2 GM in D5W 100 ML IV SCH (01:02)
[2017-05-12] MEDS: HYDROCODONE/APAP 5/325 TAB PO PRN ×2 (01:09→17:05)
[2017-05-12] MEDS: LEVOTHYROXINE 100 MCG TAB PO SCH (04:37)
[2017-05-12] MEDS: traMADol 50 MG TAB PO PRN ×3 (04:37→14:39)
[2017-05-12] MEDS: CALCIUM CARBONATE 500 MG CHEWABLE TAB PO PRN (04:57)
[2017-05-12] MEDS: HEPARIN 5,000 UNIT/0.5 ML SYR SC SCH ×3 (04:57→22:23)
[2017-05-12 05:11] LABS: % IMMATURE GRANULYOCYTES 0.8 % (0.0-1.1); ABSOLUTE IMMATURE GRANULOCYTES 0.15 10^3/uL (0.00-0.10); ABSOLUTE NRBC COUNT 0.02 10^3/uL (0-0.01); ADD DIFF? NO; ADD MORPH? NO; ADD SCAN? NO; ATYPICAL LYMPHOCYTE FLAG 0 (0-99); FRAGMENT RBC FLAG 0 (0-99); HEMATOCRIT 31.9 % (40.0-51.0); HEMOGLOBIN 10.7 g/dL (13.7-17.5); LEFT SHIFT FLG 10 (0-99); LIPEMIA HEMOLYSIS FLAG 80 (0-99); MEAN CELL HEMOGLOBIN 31.2 pg (27.9-34.1); MEAN CELL HEMOGLOBIN CONCENTR. 33.5 g/dL (32.4-36.7); MEAN PLATELET VOLUME 11.9 fL (8.7-11.7); NRBC-AUTO% 0.1 % (0.0-0.2); PLATELET CLUMPS FLAG 20 (0-99); PLATELET COUNT 127 10^3/uL (150-400); RED BLOOD CELL COUNT 3.43 10^6/uL (4.40-6.38); RED CELL DISTRIBUTION WIDTH 13.6 % (11.5-15.2)
[2017-05-12 05:18] LABS: INR 1.42 (0.83-1.16); PROTIME(PATIENT) 17.3 SEC (12.0-15.0)
[2017-05-12 05:21] LABS: ANION GAP 10 mEq/L (8-16); CARBON DIOXIDE 23 mEq/l (22-31); CHLORIDE 97 mEq/L (97-110); CREATININE 1.2 mg/dL (0.7-1.3); GLOMERULAR FILTRATION RATE > 60; GLUCOSE 282 mg/dL (70-100); POTASSIUM 4.9 mEq/L (3.5-5.2); SODIUM 130 mEq/L (134-144)
[2017-05-12] MEDS: ONDANSETRON 4 MG/2 ML VIAL IVP PRN (06:37)
--- NOTE | 2017-05-12 08:08 | SOAPPROG ---
SOAP Progress Note Assessment/Plan: Assessment: POD#2 MVR #29 Thompson Magna bovine bioprosthesis, CoxMaze IV procedure Sx severe MR - Flail A2 with calcified subchordal apparatus not amenable to repair. Replaced with a tissue valve. Antithrombotic prophylaxis as per Maze. Longstanding persistent AF - Addressed with CM4. Postop rhythm sinus with controlled rates. No backup pacing. AF prophylaxis with BB as allowed by HR. Antithrombotic prophylaxis with Coumadin. Target INR 2-3. Duration TBD at 3 mo as per Maze protocol. Valvular cardiomyopathy with LVSD and chronic class II sCHF - Off CPB without inotropic support. Extubated in the OR. Moderate volume overload well tolerated. Staggered reintroduction of heart failure regimen as tolerated. HTN - Postop management with nicardipine, transitioning to BB. [place] parameters for renal perfusion. Postop hyponatremia - Exacerbated by ligation left atrial appendage and fluid overload (+7kg). Appears to be responding to diuresis and fluid restriction. Follow. Acute expected blood loss anemia - Stable. No transfusions required. DM2 - preop A1c of 7.4%. Postop hyperglycemia managed with low dose insulin gtt. Transition to SSI/orals in progress. Nonobstructive CAD - Ectatic vessels w mild luminal irregs. Secondary prevention w ASA, BB, statin. ALEC - Stable. CPAP prn given hx mask intolerance. Plan: Remove mediastinal drains. Remove A wires. Keep Vwire backup capacity. Cont metoprolol 12.5 mg BID. Lasix 40 mg IV x 1. Coumadin 2.5 mg today. Restart metformin. Increase pulm toilet and activity. Baseline postop echo Mon. Dispo - Anticipate home without services 05/11/17 07:06 Subjective: Doing ok. Improved stamina, mobility and appetite. Walking independently in the room. Awaiting BM. Objective: Vital Signs Temp Pulse Resp BP Pulse Ox 36.6 C 64 16 149/83 H 90 L 05/12/17 04:00 05/12/17 04:00 05/12/17 04:00 05/12/17 04:00 05/12/17 04:00 Laboratory Results 05/12/17 04:55 05/12/17 04:55 05/11/17 05/12/17 05/13/17 05:59 05:59 05:59 Intake Total 1039 2035 Output Total 1900 1577.5 Balance -861 457.5 PT 17.3 SEC (12.0-15.0) H 05/12/17 04:55 INR 1.42 (0.83-1.16) H 05/12/17 04:55 Holding SR. Some natividad on low dose metop. Upward creeping SBP. Min suppl O2 req. CXR-> hypovent, bibasilar atelectasis. Mediastinal drains at removal criteria. Positive fluid balance. +8 kg overall. Labs ok. INR on the rise. Physical Exam - Physical Exam General Appearance: alert, no apparent distress Respiratory: crackles (bases o/w CTA), other (blakes x 3 to bulb suction, thin serosang drainage. ) Cardiac/Chest: regular rate, rhythm, other (Sternotomy CDI. 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
[2017-05-12] MEDS ORDERED: INSULIN GLARGINE 100 UNITS/ML SYRINGE SC SCH (09:00)
[2017-05-12] MEDS ORDERED: FUROSEMIDE 40 MG/4 ML VIAL IVP ONE (09:00)
[2017-05-12] MEDS: ASPIRIN 81 MG CHEWABLE TAB PO SCH (09:58)
[2017-05-12] MEDS: SENNOSIDES/DOCUSATE SODIUM TAB PO SCH ×2 (09:59→22:23)
[2017-05-12] MEDS: PANTOPRAZOLE SODIUM 40 MG TAB PO SCH (09:59)
[2017-05-12] MEDS: INSULIN LISPRO 100 UNIT/ML SC SCH ×3 (10:35→21:10)
[2017-05-12] MEDS: METOPROLOL TARTRATE 25 MG TAB PO SCH ×2 (10:40→21:08)
[2017-05-12] MEDS ORDERED: WARFARIN SODIUM 2.5 MG TAB PO ONE (16:00)
[2017-05-12] MEDS ORDERED: NON-FORMULARY NEW DRUG (Metformin Hcl [Glucophage 1000 Mg] 1,000 MG) PO SCH (18:00)
[2017-05-12] MEDS: MUPIROCIN 2% 22 GM OINT NS SCH (19:21)
[2017-05-12] MEDS: PRAVASTATIN SODIUM 10 MG TAB PO SCH (21:07)
[2017-05-12] MEDS: FERROUS SULFATE 325 MG TAB PO SCH (21:07)
[2017-05-12] MEDS: FLUTICASONE NASAL 120 SPRAYS/16 GM MDI EACHNARE SCH (21:09)
[2017-05-12] MEDS: metFORMIN HCL 500 MG TAB PO SCH (21:10)
[2017-05-13 04:26] LABS: INR 1.39 (0.83-1.16)
[2017-05-13 04:29] LABS: ANION GAP 10 mEq/L (8-16); CALCIUM 8.4 mg/dL (8.5-10.4); CARBON DIOXIDE 29 mEq/l (22-31); CHLORIDE 93 mEq/L (97-110); CREATININE 1.1 mg/dL (0.7-1.3); GLOMERULAR FILTRATION RATE > 60; GLUCOSE 205 mg/dL (70-100); POTASSIUM 4.1 mEq/L (3.5-5.2); SODIUM 132 mEq/L (134-144)
[2017-05-13] MEDS: traMADol 50 MG TAB PO PRN ×3 (04:39→19:22)
[2017-05-13] MEDS: LEVOTHYROXINE 100 MCG TAB PO SCH (04:39)
[2017-05-13] MEDS: HEPARIN 5,000 UNIT/0.5 ML SYR SC SCH ×3 (04:39→20:29)
--- NOTE | 2017-05-13 08:15 | SOAPPROG ---
SOAP Progress Note Assessment/Plan: Assessment: POD#3 MVR #29 Thompson Magna bovine bioprosthesis, CoxMaze IV procedure Sx severe MR - Flail A2 with calcified subchordal apparatus not amenable to repair. Replaced with a tissue valve. Antithrombotic prophylaxis as per Maze. Longstanding persistent AF - Addressed with CM4. Postop rhythm mostly SR/SB without backup pacing. Use of BB limited by natividad. Recurrent PAF with CVR as of late last noc. AF prophylaxis now with amio and BB as tolerated. Antithrombotic prophylaxis with Coumadin. Target INR 2-3. Duration TBD at 3 mo as per Maze protocol. Valvular cardiomyopathy with LVSD and chronic class II sCHF - Off CPB without inotropic support. Extubated in the OR. Actively diuresing moderate volume overload with stable renal fx. Staggered reintroduction of heart failure regimen as tolerated. HTN - Postop management with nicardipine, transitioning to BB. [place] parameters for renal perfusion. Postop hyponatremia - Low of 128. Exacerbated by ligation left atrial appendage and fluid overload (+7kg). Appears to be responding to diuresis and fluid restriction. Follow. Acute expected blood loss anemia - Stable. No transfusions required. DM2 - preop A1c of 7.4%. Postop hyperglycemia managed with low dose insulin gtt. Transition to SSI/orals in progress. Nonobstructive CAD - Ectatic vessels w mild luminal irregs. Secondary prevention w ASA, BB, statin. ALEC - Stable. CPAP prn given hx mask intolerance. Plan: Keep rt pleural tube for one more day. Relax HR hold parameter on metoprolol. Start amiodarone. Keep Vwire backup capacity. Switch lasix IV to oral. Coumadin 5 mg today. Restart glipizide. Stop bowel regimen. Cont inc pulm toilet and activity. Baseline postop echo tomorrow. Dispo - Anticipate home without services next 1-2 days. 05/13/17 08:12 Subjective: Miserable night w loose stools. No longer using ambulatory assist device and no issues getting to the BR. Objective: Vital Signs Temp Pulse Resp BP Pulse Ox 36.9 C 97 18 133/92 H 92 05/13/17 07:56 05/13/17 07:56 05/13/17 07:56 05/13/17 07:56 05/13/17 07:56 Laboratory Results 05/12/17 04:55 05/13/17 04:00 05/12/17 05/13/17 05/14/17 05:59 05:59 05:59 Intake Total 2035 1800 Output Total 1577.5 2671 Balance 457.5 -871 PT 17.0 SEC (12.0-15.0) H 05/13/17 04:00 INR 1.39 (0.83-1.16) H 05/13/17 04:00 BB held last noc for HR 64. PAF w CVR ~1am. Asx. Almost off suppl O2. Improved fluid balance on lasix. Rt pleural tube output a bit high to pull. Na cont to rise. INR cont to fall. - Pending Discharge Pending Discharge Within 48 Hours: Yes Pending Discharge Date: 05/15/17 Pending Discharge Time: 11:00 Physical Exam - Physical Exam General Appearance: alert (looks tired), no apparent distress Respiratory: crackles (rt base), other (rosel[place] to bulb suction, thin serosang drainage) Cardiac/Chest: irregularly irregular, other (Sternotomy and LLE venotomy CDI. 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
[2017-05-13] MEDS ORDERED: POTASSIUM CL 20 MEQ TAB PO SCH ×2 (09:00→15:00)
[2017-05-13] MEDS ORDERED: FUROSEMIDE 40 MG TAB PO SCH ×2 (09:00→15:00)
[2017-05-13] MEDS ORDERED: SENNOSIDES/DOCUSATE SODIUM TAB PO PRN (09:00)
[2017-05-13] MEDS ORDERED: METOPROLOL TARTRATE 25 MG TAB PO SCH (09:00)
[2017-05-13] MEDS: metFORMIN HCL 500 MG TAB PO SCH ×2 (09:28→17:49)
[2017-05-13] MEDS: INSULIN LISPRO 100 UNIT/ML SC SCH ×3 (09:28→17:49)
[2017-05-13] MEDS: glipiZIDE 5 MG TAB PO SCH (09:30)
[2017-05-13] MEDS: PANTOPRAZOLE SODIUM 40 MG TAB PO SCH (09:30)
[2017-05-13] MEDS: ASPIRIN 81 MG CHEWABLE TAB PO SCH (09:31)
[2017-05-13] MEDS ORDERED: AMIODARONE HCL 100 ML IV ONE (11:03)
[2017-05-13] MEDS: ONDANSETRON 4 MG/2 ML VIAL IVP PRN (15:05)
[2017-05-13] MEDS ORDERED: WARFARIN SODIUM 5 MG TAB PO ONE (16:00)
[2017-05-13] MEDS: FERROUS SULFATE 325 MG TAB PO SCH (20:26)
[2017-05-13] MEDS: PRAVASTATIN SODIUM 10 MG TAB PO SCH (20:26)
[2017-05-13] MEDS: AMIODARONE HCL 200 MG TAB PO SCH (20:26)
[2017-05-13] MEDS: METOPROLOL TARTRATE 25 MG TAB PO SCH (20:27)
[2017-05-13] MEDS: FLUTICASONE NASAL 120 SPRAYS/16 GM MDI EACHNARE SCH (20:29)
[2017-05-13] MEDS ORDERED: NON-FORMULARY NEW DRUG (Simvastatin [Zocor] 5 MG) PO SCH (21:00)
[2017-05-14] MEDS: HEPARIN 5,000 UNIT/0.5 ML SYR SC SCH ×2 (06:33→15:01)
[2017-05-14] MEDS: LEVOTHYROXINE 100 MCG TAB PO SCH (06:33)
[2017-05-14 07:02] LABS: POTASSIUM 3.7 mEq/L (3.5-5.2)
[2017-05-14 07:04] LABS: INR 1.79 (0.83-1.16); PROTIME(PATIENT) 20.9 SEC (12.0-15.0)
[2017-05-14] MEDS ORDERED: POTASSIUM CL 20 MEQ TAB PO SCH ×2 (07:14→09:00)
--- NOTE | 2017-05-14 07:15 | SOAPPROG ---
SOAP Progress Note Assessment/Plan: POD#4 MVR #29 Thompson Magna bovine bioprosthesis, CoxMaze IV procedure Sx severe MR - Flail A2 with calcified subchordal apparatus not amenable to repair. Replaced with a tissue valve. Antithrombotic prophylaxis as per Maze. Longstanding persistent AF - Addressed with CM4. Postop rhythm SR/SB/AF. AF prophylaxis now with amio and BB. Antithrombotic prophylaxis with Coumadin. Target INR 2-3. Duration TBD at 3 mo as per Maze protocol. Valvular cardiomyopathy with LVSD and chronic class II sCHF - Off CPB without inotropic support. Extubated in the OR. Actively diuresing moderate volume overload with stable renal fx. Staggered reintroduction of heart failure regimen as tolerated. HTN - Postop management with nicardipine, transitioning to BB. [place] parameters for renal perfusion. Postop hyponatremia - Low of 128. Exacerbated by ligation left atrial appendage and fluid overload (+7kg). Appears to be responding to diuresis and fluid restriction. Follow. Acute expected blood loss anemia - Stable. No transfusions required. DM2 - preop A1c of 7.4%. Postop hyperglycemia managed with low dose insulin gtt. Transitioned to home regimen. Nonobstructive CAD - Ectatic vessels w mild luminal irregs. Secondary prevention w ASA, BB, statin. ALEC - Stable. CPAP prn given hx mask intolerance. = Subjective: No complaints. Feels well. Comfortable. Objective: Vital Signs Temp Pulse Resp BP Pulse Ox 36.9 C 57 L 16 108/66 93 05/14/17 04:00 05/14/17 04:00 05/14/17 04:00 05/14/17 04:00 05/14/17 04:00 Laboratory Results 05/12/17 04:55 05/14/17 06:30 05/13/17 05/14/17 05/15/17 05:59 05:59 05:59 Intake Total 1800 500 Output Total 2671 1665 Balance -871 -1165 PT 20.9 SEC (12.0-15.0) H 05/14/17 06:30 INR 1.79 (0.83-1.16) H 05/14/17 06:30 Physical Exam - Physical Exam General Appearance: WD/WN, alert, no apparent distress EENT: No scleral icterus (R), No scleral icterus (L) Neck: normal inspection Respiratory: No respiratory distress Cardiac/Chest: irregularly irregular Abdomen: non-tender, No distended Skin: normal color, warm/dry Extremities: pedal edema Neuro/Psych: no motor/sensory deficits, alert, normal mood/affect, oriented x 3 ICD10 Worksheet Patient Problems: Problems Problem Status Onset Acute blood loss anemia Acute S/P ablation of atrial fibrillation Acute S/P mitral valve replacement with bioprosthetic valve Acute Atrial fibrillation 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
[2017-05-14] MEDS ORDERED: CYANO/VITAMIN B12 1000 MCG TAB PO SCH (09:00)
[2017-05-14] MEDS ORDERED: FUROSEMIDE 40 MG TAB PO SCH (09:00)
[2017-05-14] MEDS ORDERED: MULTIVITAMINS 1 EACH TAB PO SCH (09:00)
--- NOTE | 2017-05-14 09:55 | PDDCSUM ---
Discharge Summary Discharge Summary: ADMISSION DATE: 05/10/17 DISCHARGE DATE: 05/14/17 ADMISSION DX: 1. Severe mitral insufficiency 2. Longstanding persistent atrial fibrillation 3. Chronic CHF, class II, systolic and diastolic 4. Diabetes type II DISCHARGE DX: 1. Severe mitral insufficiency 2. Longstanding persistent atrial fibrillation 3. Chronic CHF, class II, systolic and diastolic 4. Diabetes type II 5. Acute blood loss anemia PROCEDURES 05/10/17, Gómez Us: 1. Mitral valve replacement with chordal sparing with #29 Magna bioprosthesis 2. Cruz-Maze IV HOSPITAL COURSE BY PROBLEM LIST 1. Severe MR - s/p MVR with bioprosthesis. Coumadin prescribed for INR goal 2-3 , duration dependent on rhythm as per Cruz-Maze protocol. 2. Long standing persistent AF - s/p CM 4 with post-op sinus rhythm and rate- controlled AF. Coumadin and beta-jose g prescribed. Further management as per Cruz-Maze protocol. 3. Chronic CHF, class II, systolic and diastolic - medically optimized on discharge. Continue beta-jose g and Lasix. 4. Diabetes type II - home meds resumed. 5. Acute blood loss anemia - stable without the need for blood product transfusions. CONDITION Good DISPOSITION Home, self-care ACTIVITY Pt was instructed on sternal precautions, activity limitations, and which problems to call [facility] with. Please see Discharge Plan in chart for specifics. D/C MEDICATIONS Continue: 1. Cyanocobalamin [Vitamin B12 (*)] 5,000 mcg PO DAILY 2. Ferrous Sulfate [Ferrous Sulf 325 MG (*)] 325 mg PO HS 3. Fluticasone Nasal [Flonase Nasal [place]] 2 sprays NASAL HS 4. Herbals/Supplements -Info Only 1 ea PO DAILY 5. Levothyroxine [Synthroid 100 mcg (*)] 100 mcg PO DAILY06 6. Multivitamins [Multivitamin (*)] 1 each PO DAILY 7. Naproxen Sodium [Aleve 220 MG (*)] 220 mg PO BID PRN 8. Simvastatin [Zocor] 5 mg PO HS 9. Trolamine Salicylate [Aspercreme] 1 traci TP DAILY PRN 10. glipiZIDE [Glipizide] 5 mg PO DAILY 11. Acetaminophen [Tylenol 325mg (*)] 325 mg PO BID PRN 12. Cetirizine [ZyrTEC 10 mg (*)] 10 mg PO HS 13. Aspirin [Aspirin 81mg (*)] 81 mg PO DAILY 14. metFORMIN HCL [Glucophage 1000 mg] 1,000 mg PO BIDMEAL New: 1. Amiodarone HCl [Pacerone (*)] 200 mg PO BID 2. Furosemide [Lasix 40 MG (*)] 40 mg PO DAILY 3. Metoprolol Tartrate [Lopressor 25 mg (*)] 12.5 mg PO BID 4. Potassium Cl [Klor-Con 20 meq (*)] 40 meq PO DAILY 5. Warfarin Sodium [Coumadin 2.5MG (*)] 2.5 mg PO DAILY AT 4PM 6. traMADol [Ultram 50 mg (*)] 50 - 100 mg PO Q4HRS PRN Discontinue: 1. Eliquis 2. Lovenox 3. Diltiazem 4. Lasix (20 mg) PENDING STUDIES/LABS 1. CXR prior to surgical follow-up 2. INR as per Coumadin clinic F/U APPOINTMENTS 1. Gómez Us - 05/18/17, 1:00 PM
[2017-05-14] MEDS: metFORMIN HCL 500 MG TAB PO SCH ×2 (11:09→18:13)
[2017-05-14] MEDS: METOPROLOL TARTRATE 25 MG TAB PO SCH (11:09)
[2017-05-14] MEDS: AMIODARONE HCL 200 MG TAB PO SCH (11:09)
[2017-05-14] MEDS: PANTOPRAZOLE SODIUM 40 MG TAB PO SCH (11:11)
[2017-05-14] MEDS: ASPIRIN 81 MG CHEWABLE TAB PO SCH (11:11)
[2017-05-14] MEDS: glipiZIDE 5 MG TAB PO SCH (11:11)
--- NOTE | 2017-05-14 11:24 | ECHO ---
[email or web address] [address] [address] Main: [phone] Fax: Transthoracic Echocardiogram Name: CALVIN WALSH MR#: [id number] Study Date: 05/14/2017 Study Time: 10:17 AM Date of : 1950 Age: 67 year(s) Height: 167.6 cm (66 in.) Weight: 91.63 kg (202 lb.) BSA: 2.01 m2 Gender: Male Examination: Echo Indication: baseline postop echo/hx LVSD/s/p MVR#29 CE magna bovine valve Image Quality: Contrast: Requested by: Vannesa Merchant BP: 125 mmHg/82 mmHg Heart Rate: Rhythm: Indication: baseline postop echo/hx LVSD/s/p MVR#29 CE magna bovine valve Procedure Staff Street Cleaner: Nicole Young Reading Physician: Preston Venegas Requesting Provider: Conclusions: Global hypercontractility of the left ventricle. The ejection fraction is estimated to be 70-75 %. The left atrium is mildly dilated. A bioprosthetic mitral valve is in place.. MV mean PG is 12mmHG. MV mean PG is 4mmHG.. Trivial tricuspid valve regurgitation. Measurements: Chambers Valvular Assessment AV/MV Valvular Assessment TV/PV Normal Normal Normal Name Value Range Name Value Range Name Value Range Ao Judy (MM): 3.5 cm (2.2 cm-3.7 AV meanP mmHg ( - ) cm) MV E Vmax: 1.55 m/s ( - ) IVSd (2D): 1.0 cm (0.6 cm-1.1 MV meanP mmHg ( - ) cm) LVDd (2D): 4.6 cm (4.2 cm-5.9 cm) LVDs (2D): 3.2 cm (2.1 cm-4 cm) LVPWd (2D): 0.9 cm (0.6 cm-1 cm) LVEF (2D): 60 (>=54 %) EF Range: 70-75 % Continued Measurements: Chambers Valvular Assessment AV/MV Name Value Name Value LADs: 5.2 cm MV DecTime: 303 m/s Patient: CALVIN WALSH Study Date: 05/14/2017 Page 1 of 2 10:17 AM LADs Lon.5 cm MV VTI: 31.80 cm LA Area: 21.2 cm2 Findings: Left Ventricle: Normal size left ventricle. Global hypercontractility of the left ventricle. The ejection fraction is estimated to be 70-75 %. No regional wall motion abnormality. Right Ventricle: Normal size right ventricle. Left Atrium: The left atrium is mildly dilated. Right Atrium: The right atrium is normal in size. Mitral Valve: A bioprosthetic mitral valve is in place.. MV mean PG is 12mmHG. MV mean PG is 4mmHG.. Aortic Valve: The aortic valve opens well.. Tricuspid Valve: The tricuspid valve appears normal. Trivial tricuspid valve regurgitation. Pulmonic Valve: The pulmonic valve is normal in appearance. Pericardium: No pericardial effusion. (No Signature Object) Patient: CALVIN WALSH Study Date: 05/14/2017 Page 2 of 2 10:17 AM [id number]
[2017-05-14 12:06] VITALS: BP 125/82; PULSE 83; RESP 18; TEMP 98.1; O2SAT 96
[2017-05-14] MEDS: INSULIN LISPRO 100 UNIT/ML SC SCH (12:37)
[2017-05-14] MEDS ORDERED: WARFARIN SODIUM 2.5 MG TAB PO SCH (16:00)
[2017-05-14] MEDS ORDERED: WARFARIN SODIUM 2.5 MG TAB PO ONE (16:00)
== END 2017-05-14 18:40 | disposition home or self-care (01) | DRG 219 ==
LOC: F2W 06:45 → F2N 06:45 → F2W 05-11 12:55
PROVIDERS: ADMIT Thoracic Surgery (Cardiothoracic Vascular Surgery); ATTEND Thoracic Surgery (Cardiothoracic Vascular Surgery)
PROC: 5A1221Z Performance of Cardiac Output, Continuous (ICD-10-PCS; principal; 2017-05-10 08:15)
PROC: 02580ZZ Destruction of Conduction Mechanism, Open Approach (ICD-10-PCS; principal; 2017-05-10 08:15)
PROC: 02RG08Z Replacement of Mitral Valve with Zooplastic Tissue, Open Approach (ICD-10-PCS; principal; 2017-05-10 08:15)
PROC: B246ZZ4 Ultrasonography of Right and Left Heart, Transesophageal (ICD-10-PCS; principal; 2017-05-10 08:15)
PROC: 02L70CK Occlusion of Left Atrial Appendage with Extraluminal Device, Open Approach (ICD-10-PCS; principal; 2017-05-10 08:15)
DX: I34.0 Nonrheumatic mitral (valve) insufficiency (principal); I48.1 Persistent atrial fibrillation; I50.42 Chronic combined systolic (congestive) and diastolic (congestive) heart failure; I51.1 Rupture of chordae tendineae, not elsewhere classified; D62 Acute posthemorrhagic anemia; E87.1 Hypo-osmolality and hyponatremia; E11.65 Type 2 diabetes mellitus with hyperglycemia; I25.10 Atherosclerotic heart disease of native coronary artery without angina pectoris; G47.33 Obstructive sleep apnea (adult) (pediatric)
CPT/HCPCS: 82947-QW; 97110-GP; 97116-GP; 97161-GP; 97166-GO; 97530-GP; 97535-GO; G8978-GP-CK; G8979-GP-CI; G8987-GO-CK; G8988-GO-CI; G8989-GO-CI; J0153; J0171; J0282; J0690; J1170; J1250; J1265; J1644; J1815; J1940; J2001; J2150; J2250; J2260; J2370; J2405; J2704; J2720; J2765; J2930; J3010; J7060; P9041

== ENCOUNTER → 2017-05-18 | Outpatient (CLI) | payer OTHER, MEDICARE | LOC: FIMAGING 11:50 | PROVIDERS: ATTEND Physician Assistant | DX: J90 Pleural effusion, not elsewhere classified (principal); J98.11 Atelectasis; R09.02 Hypoxemia ==

== ENCOUNTER 2017-05-29 14:44 | Inpatient (IN) | payer OTHER, MEDICARE ==
[2017-05-29] MEDS ORDERED: WARFARIN SODIUM 2.5 MG TAB PO SCH (16:15)
--- NOTE | 2017-05-29 16:36 | CPEKG ---
Heart Rate: 132 RR Interval: 455 QRSD Interval: 88 QT Interval: 340 QTC Interval: 504 QRS [place]: 31 T Wave [place]: -81 EKG Severity - ABNORMAL ECG - EKG Impression: JUNCTIONAL TACHYCARDIA EKG Impression: BORDERLINE R WAVE PROGRESSION, ANTERIOR LEADS EKG Impression: NONSPECIFIC T ABNORMALITIES, INFERIOR LEADS EKG Impression: PROLONGED QT INTERVAL Electronically Signed By: Myron August 30-May-2017 11:03:11
[2017-05-29 16:54] LABS: PLATELET COUNT 369 10^3/uL (150-400)
[2017-05-29] MEDS ORDERED: SOTALOL HCL 80 MG TAB PO SCH (17:00)
[2017-05-29] MEDS ORDERED: POTASSIUM CL 10 MEQ TAB PO ONE (17:11)
[2017-05-29] MEDS ORDERED: MAGNESIUM SULF 1 GM/DEXTROSE 100 ML IV ONE (17:15)
[2017-05-29 17:22] LABS: INR 1.15 (0.83-1.16); PROTIME(PATIENT) 14.6 SEC (12.0-15.0)
[2017-05-29] MEDS: metFORMIN HCL 500 MG TAB PO SCH (17:22)
[2017-05-29] MEDS ORDERED: NON-FORMULARY NEW DRUG (Metformin Hcl [Glucophage 1000 Mg] 1,000 MG) PO SCH (18:00)
--- NOTE | 2017-05-29 18:30 | CPEKG ---
Heart Rate: 100 RR Interval: 600 QRSD Interval: 86 QT Interval: 360 QTC Interval: 465 QRS [place]: 23 T Wave [place]: -46 EKG Severity - ABNORMAL ECG - EKG Impression: atrial fibrillation EKG Impression: BORDERLINE R WAVE PROGRESSION, ANTERIOR LEADS EKG Impression: NONSPECIFIC T ABNORMALITIES, INFERIOR LEADS Electronically Signed By: Myron August 30-May-2017 11:03:09
[2017-05-29] MEDS ORDERED: WARFARIN SODIUM 2.5 MG TAB PO ONE (19:00)
--- NOTE | 2017-05-29 19:21 | PDCARPN ---
Cardiology Progress Note Chief Complaint: ATRIAL FIBRILLATION Assessment/Plan: Assessment: ATRIAL FIBRILLATION-- He has structural heart disease, with recent Mitral valve Replacement surgery 3 weeks ago. He was intolerant to Amioderone for AF. He needs to be on BB therapy post op. Dr Romero selected Sotalol to Load for AF treatment. He will start on Satolol 120 mg BID. INR 1.[address] Romero will determine treatment for anticoagulation. Plan: Will initiate Satolol 120 mg BID with Initial EKG, then EKG 2 hrs after each dose. He Will start with dosing at 5p, 2A, and then regular dosing at 9am & 9PM. EKG reports are to be called to Dr Romero. Will plan for DCCV on 05/31/17. 05/29/17 19:21 05/29/17 19:26 Subjective: Steve has activity intolerance, and feels fatigued. He denies SOB, or chest pain. He is hopeful the Sotalol will be tolerated well and be an effective treatment. Reviewed/Discussed With: multidisciplinary team (Nurses), other (Dr Romero) Time Spent With Patient: >30 minutes Objective: Vital Signs (8 Hrs) Temp Pulse Resp BP Pulse Ox 05/29/17 15:13 36.7 C 136 H 19 116/83 H 96 Intake/Output (24 Hrs) 05/28/17 05/29/17 05/30/17 05:59 05:59 05:59 Intake Total 200 Balance 200 Intake: Oral (ml) 200 Other: Weight 81.3 kg Intake Quantity Yes Sufficient Number of Voids Toilet 2 Result Diagrams: 05/29/17 16:00 05/29/17 16:00 - Physical Exam Cardiovascular: no murmurs, no rubs, irregularly irregular Peripheral Pulses: 0: dorsalis-pedis (R), dorsalis-pedis (L) Respiratory: clear to auscultate bilat, no crackles, no wheezes Skin: warm, no edema Neurologic: AAOx3 Psychiatric: cooperative, interactive ICD10 Worksheet Patient Problems: Problems Problem Status Onset Acute blood loss anemia Acute Mitral valve disease Acute S/P ablation of atrial fibrillation Acute S/P mitral valve replacement with bioprosthetic valve Acute Atrial fibrillation 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
[2017-05-29] MEDS: ASPIRIN 81 MG CHEWABLE TAB PO SCH (20:26)
[2017-05-29] MEDS: PRAVASTATIN SODIUM 10 MG TAB PO SCH (20:26)
[2017-05-29] MEDS ORDERED: NON-FORMULARY NEW DRUG (Simvastatin [Zocor] 5 MG) PO SCH (21:00)
[2017-05-30] MEDS ORDERED: SOTALOL HCL 80 MG TAB PO ONE (02:00)
[2017-05-30 05:27] LABS: INR 1.17 (0.83-1.16); PROTIME(PATIENT) 14.9 SEC (12.0-15.0)
[2017-05-30] MEDS: LEVOTHYROXINE 100 MCG TAB PO SCH (06:34)
[2017-05-30] MEDS: metFORMIN HCL 500 MG TAB PO SCH ×2 (08:42→18:01)
[2017-05-30] MEDS: SOTALOL HCL 80 MG TAB PO SCH ×2 (08:42→21:05)
[2017-05-30] MEDS: POTASSIUM CL 20 MEQ TAB PO SCH (08:42)
[2017-05-30] MEDS: glipiZIDE 5 MG TAB PO SCH (08:42)
[2017-05-30] MEDS: TORSEMIDE 20 MG TAB PO SCH (08:42)
[2017-05-30] MEDS: SENNOSIDES/DOCUSATE SODIUM TAB PO SCH (08:43)
[2017-05-30] MEDS ORDERED: SOTALOL HCL 80 MG TAB PO SCH (09:00)
--- NOTE | 2017-05-30 09:29 | CPEKG ---
Heart Rate: 63 RR Interval: 952 P-R Interval: 168 QRSD Interval: 86 QT Interval: 504 QTC Interval: 517 P [place]: 80 QRS [place]: 34 T Wave [place]: -35 EKG Severity - ABNORMAL ECG - EKG Impression: SINUS RHYTHM EKG Impression: BORDERLINE T ABNORMALITIES, INFERIOR LEADS EKG Impression: PROLONGED QT INTERVAL Electronically Signed By: Myron August 30-May-2017 11:01:28
--- NOTE | 2017-05-30 10:48 | CPEKG ---
Heart Rate: 62 RR Interval: 968 P-R Interval: 168 QRSD Interval: 90 QT Interval: 504 QTC Interval: 512 P [place]: 76 QRS [place]: 35 T Wave [place]: -42 EKG Severity - ABNORMAL ECG - EKG Impression: SINUS RHYTHM EKG Impression: BORDERLINE R WAVE PROGRESSION, ANTERIOR LEADS EKG Impression: NONSPECIFIC T ABNORMALITIES, INFERIOR LEADS EKG Impression: PROLONGED QT INTERVAL Electronically Signed By: Myron August 30-May-2017 11:01:21
--- NOTE | 2017-05-30 11:01 | ASMTCMCOM ---
CM Note CM Note Notes: Patient is s/p MVR 3 weeks ago and experiencing activity intolerance and fatigue. He is admitted for Sotalol loading. Planned DCCV tomorrow. No therapies are ordered, patient will likely discharge home independently with his . CM available if needs change. Current D/C plan: Home independent Date Signed: 05/30/2017 11:00 AM Electronically Signed By:Dayna Godwin RN
[2017-05-30] MEDS ORDERED: WARFARIN SODIUM 7.5 MG TAB PO SCH (16:00)
[2017-05-30] MEDS: PRAVASTATIN SODIUM 10 MG TAB PO SCH (21:05)
[2017-05-30] MEDS: ASPIRIN 81 MG CHEWABLE TAB PO SCH (21:05)
--- NOTE | 2017-05-30 23:01 | CPEKG ---
Heart Rate: 57 RR Interval: 1053 P-R Interval: 152 QRSD Interval: 92 QT Interval: 524 QTC Interval: 511 P [place]: 97 QRS [place]: 22 T Wave [place]: -21 EKG Severity - ABNORMAL ECG - EKG Impression: SINUS RHYTHM EKG Impression: ANTERIOR INFARCT, OLD EKG Impression: BORDERLINE T ABNORMALITIES, INFERIOR LEADS EKG Impression: PROLONGED QT INTERVAL Electronically Signed By: Dave Wang 31-May-2017 08:48:44
--- NOTE | 2017-05-30 23:01 | CPEKG ---
Heart Rate: 57 RR Interval: 1053 P-R Interval: 152 QRSD Interval: 92 QT Interval: 524 QTC Interval: 511 P [place]: 97 QRS [place]: 22 T Wave [place]: -21 EKG Severity - ABNORMAL ECG - EKG Impression: SINUS RHYTHM EKG Impression: ANTERIOR INFARCT, OLD EKG Impression: BORDERLINE T ABNORMALITIES, INFERIOR LEADS EKG Impression: PROLONGED QT INTERVAL Electronically Signed By: Dave Wang 31-May-2017 08:48:44
[2017-05-31 04:54] LABS: INR 1.22 (0.83-1.16); PROTIME(PATIENT) 15.4 SEC (12.0-15.0)
[2017-05-31] MEDS: LEVOTHYROXINE 100 MCG TAB PO SCH (06:08)
[2017-05-31] MEDS: glipiZIDE 5 MG TAB PO SCH (08:30)
[2017-05-31] MEDS: metFORMIN HCL 500 MG TAB PO SCH (08:30)
[2017-05-31] MEDS: SENNOSIDES/DOCUSATE SODIUM TAB PO SCH (08:31)
[2017-05-31] MEDS: TORSEMIDE 20 MG TAB PO SCH (08:31)
[2017-05-31] MEDS: POTASSIUM CL 20 MEQ TAB PO SCH (08:31)
[2017-05-31] MEDS ORDERED: SOTALOL HCL 80 MG TAB PO SCH ×2 (09:00→21:00)
--- NOTE | 2017-05-31 10:28 | CPEKG ---
Heart Rate: 60 RR Interval: 1000 P-R Interval: 156 QRSD Interval: 90 QT Interval: 496 QTC Interval: 496 P [place]: 92 QRS [place]: 32 T Wave [place]: -31 EKG Severity - ABNORMAL ECG - EKG Impression: SINUS RHYTHM EKG Impression: BORDERLINE R WAVE PROGRESSION, ANTERIOR LEADS EKG Impression: ST depression, INFERIOR LEADS EKG Impression: BORDERLINE PROLONGED QT INTERVAL Electronically Signed By: Dave Wang 31-May-2017 17:24:23
[2017-05-31 11:08] VITALS: BP 117/66; PULSE 57; RESP 14; TEMP 98.3; O2SAT 93
--- NOTE | 2017-05-31 15:59 | ASDISCHSUM ---
Discharge Information Plan Status:Home with No Needs Medically Cleared to Leave:05/30/2017 Discharge Date:05/31/2017 01:00 PM CM D/C Disposition: ADT D/C Disposition:Home, Routine, Self-Care Projected Discharge Date:05/31/2017 12:00 AM Transportation at D/C: Discharge Delay Reason: Follow-Up Date:05/31/2017 12:00 AM Discharge Slot: Final Diagnosis: Placement Information Patient Contact Information Contact Name:BOB Relationship: Address[address] City:[place] Alternate Phone: [facility]/Zip Code:[place] [address] Email: Financial Information Financial Class: Primary Plan Desc:MEDICARE INPATIENT Primary Plan Number:[id number] Secondary Plan Desc:[employer]ARP/MDR SUPPLEMENT Secondary Plan Number:[id number] Assessment Information BC CM Progress Note CM Note CM Note Notes: Patient is s/p MVR 3 weeks ago and experiencing activity intolerance and fatigue. He is admitted for Sotalol loading. Planned DCCV tomorrow. No therapies are ordered, patient will likely discharge home independently with his . CM available if needs change. Current D/C plan: Home independent Date Signed: 05/30/2017 11:00 AM Electronically Signed By:Dayna Godwin RN Intervention Information Intervention Type:*IM-Signed Date of Service:05/31/2017 01:37 PM Patient Type:Inpatient Staff Member:Verónica Hand Hours: Discipline: Severity: Comment:
--- NOTE | 2017-05-31 15:59 | ASDISCHSUM ---
Discharge Information Plan Status:Home with No Needs Medically Cleared to Leave:05/30/2017 Discharge Date:05/31/2017 01:00 PM CM D/C Disposition: ADT D/C Disposition:Home, Routine, Self-Care Projected Discharge Date:05/31/2017 12:00 AM Transportation at D/C: Discharge Delay Reason: Follow-Up Date:05/31/2017 12:00 AM Discharge Slot: Final Diagnosis: Placement Information Patient Contact Information Contact Name:BOB Relationship: [address] City:[place] Alternate Phone: [facility]/Zip Code:[place] [address] Email: Financial Information Financial Class: Primary Plan Desc:MEDICARE INPATIENT Primary Plan Number:[id number] Secondary Plan Desc:[employer]ARP/MDR SUPPLEMENT Secondary Plan Number:[id number] Assessment Information BC CM Progress Note CM Note CM Note Notes: Patient is s/p MVR 3 weeks ago and experiencing activity intolerance and fatigue. He is admitted for Sotalol loading. Planned DCCV tomorrow. No therapies are ordered, patient will likely discharge home independently with his . CM available if needs change. Current D/C plan: Home independent Date Signed: 05/30/2017 11:00 AM Electronically Signed By:Dayna Godwin RN Intervention Information Intervention Type:*IM-Signed Date of Service:05/31/2017 01:37 PM Patient Type:Inpatient Staff Member:Verónica Hand Hours: Discipline: Severity: Comment:
--- NOTE | 2017-05-31 15:59 | ASDISCHSUM ---
Discharge Information Plan Status:Home with No Needs Medically Cleared to Leave:05/30/2017 Discharge Date:05/31/2017 01:00 PM CM D/C Disposition: ADT D/C Disposition:Home, Routine, Self-Care Projected Discharge Date:05/31/2017 12:00 AM Transportation at D/C: Discharge Delay Reason: Follow-Up Date:05/31/2017 12:00 AM Discharge Slot: Final Diagnosis: Placement Information Patient Contact Information Contact Name:BOB Relationship: [address] City:[place] Alternate Phone: [facility] [place]/Zip Code:[place] [address] Email: Financial Information Financial Class: Primary Plan Desc:MEDICARE INPATIENT Primary Plan Number:[id number] Secondary Plan Desc:AARP/MDR SUPPLEMENT Secondary Plan Number:[id number] Assessment Information BC CM Progress Note CM Note CM Note Notes: Patient is s/p MVR 3 weeks ago and experiencing activity intolerance and fatigue. He is admitted for Sotalol loading. Planned DCCV tomorrow. No therapies are ordered, patient will likely discharge home independently with his . CM available if needs change. Current D/C plan: Home independent Date Signed: 05/30/2017 11:00 AM Electronically Signed By:Dayna Godwin RN Intervention Information Intervention Type:*IM-Signed Date of Service:05/31/2017 01:37 PM Patient Type:Inpatient Staff Member:Verónica Hand Hours: Discipline: Severity: Comment:
--- NOTE | 2017-06-01 14:41 | GDS ---
[f rep st] DISCHARGE SUMMARY ADMIT DIAGNOSES: 1. Atrial fibrillation. 2. Planned sotalol loading for treatment of atrial fibrillation. 3. Recent mitral valve replacement. DISCHARGE DIAGNOSIS: 1. Status post successful sotalol load. 2. Atrial fibrillation, now resolved. 3. Mitral valve replacement. COURSE OF HOSPITALIZATION: This gentleman was seen by Dr. Romero prior to admission. He was experiencing significant fatigue due to the atrial fibrillation. His EKG was done and followed closely throughout the hospitalization by Dr. Romero, who provided recommendations for sotalol dosing changes based on QTc changes. He did convert after the 1st 24 hours on sotalol. He has been up in the room and feels he is tolerating the sotalol well. His INR did dip down to 1.[address] Romero continued dosing changes during the hospitalization based on QTc changes. He will follow up next [facility]. He has been up, ambulating. His EKG was reviewed by Dr. Romero, and he is at this time stable for discharge. MEDICATIONS: He will go home on glipizide 5 mg daily, Zocor 5 mg at bedtime, Synthroid 100 mcg daily, Glucophage 1000 mg twice daily, aspirin 81 mg, Demadex 40 mg daily, Klor-Con 20 mEq daily, Senokot 2 tablets daily, Anucort-HC 25 mg rectally twice daily as needed, Coumadin 5 mg daily, sotalol 40 mg daily at bedtime, sotalol 80 mg daily in a.m., warfarin 7.5 mg daily. Warfarin dosing monitored by [facility]. PHYSICAL EXAMINATION: VITAL SIGNS: On day of discharge, blood pressure 117/66 , heart rate 57. EKG showed a normal sinus rhythm with a rate of 64. HEART: Rate regular. No murmurs, rubs or gallops. LUNGS: Sounds are clear to auscultation. No wheezes, rales, or rhonchi. EXTREMITIES: No peripheral edema. Peripheral pulses 2+ bilateral. DISCHARGE PLAN: 1. He has no activity restrictions. 2. He is to let the office know, should he experience dizziness or lightheadedness. 3. Continue with [facility] next week. 4. Follow up with Dr. Romero in 1 week for EKG. At this time, he currently is stable for discharge. /[id number]/MODL MTDD
== END 2017-05-31 13:00 | disposition home or self-care (01) | DRG 309 ==
LOC: F2W 14:50
PROVIDERS: ADMIT Internal Medicine Cardiovascular Disease; ATTEND Internal Medicine Cardiovascular Disease
PROC: 3E033RZ Introduction of Antiarrhythmic into Peripheral Vein, Percutaneous Approach (ICD-10-PCS; principal; 2017-05-29)
DX: I48.91 Unspecified atrial fibrillation (principal); E11.9 Type 2 diabetes mellitus without complications; I50.30 Unspecified diastolic (congestive) heart failure; D50.9 Iron deficiency anemia, unspecified; K21.9 Gastro-esophageal reflux disease without esophagitis; J45.909 Unspecified asthma, uncomplicated; E78.5 Hyperlipidemia, unspecified; E03.9 Hypothyroidism, unspecified; E66.9 Obesity, unspecified; G47.33 Obstructive sleep apnea (adult) (pediatric); Z95.3 Presence of xenogenic heart valve; Z79.01 Long term (current) use of anticoagulants; Z79.84 Long term (current) use of oral hypoglycemic drugs
CPT/HCPCS: J3475

== ENCOUNTER 2017-07-11 11:11 | Day surgery (SDC) | payer OTHER, MEDICARE ==
[2017-07-11] MEDS ORDERED: BENZOCAINE UNIT DOSE SPRAY HURRICAINE MM ONE (11:17)
[2017-07-11] MEDS ORDERED: fentaNYL 100 MCG/2 ML INJ IVP ONE (11:17)
[2017-07-11] MEDS ORDERED: MIDAZOLAM 2 MG/2 ML VIAL IVP ONE (11:17)
[2017-07-11] MEDS ORDERED: ATROPINE SULFATE 1 MG/10 ML SYR IVP ONE (11:17)
[2017-07-11] MEDS ORDERED: NS 500 ML IV ONE (11:17)
--- NOTE | 2017-07-11 11:32 | CPEKG ---
Heart Rate: 75 RR Interval: 800 P-R Interval: 128 QRSD Interval: 92 QT Interval: 432 QTC Interval: 483 P Kiel: 96 QRS Kiel: 9 T Wave Kiel: -27 EKG Severity - ABNORMAL ECG - EKG Impression: SINUS RHYTHM EKG Impression: NONSPECIFIC T ABNORMALITIES, INFERIOR LEADS EKG Impression: BORDERLINE PROLONGED QT INTERVAL EKG Impression: COMPARED WITH 05/31/2017, NO SIGNIFICANT CHANGE Electronically Signed By: Deisy Francisco 11-Jul-2017 15:36:00
== END 2017-07-11 11:57 | disposition home or self-care (01) ==
LOC: FCATH 11:11
PROVIDERS: ATTEND Internal Medicine Cardiovascular Disease
DX: I48.91 Unspecified atrial fibrillation (principal); R94.31 Abnormal electrocardiogram [ECG] [EKG]; Z53.09 Procedure and treatment not carried out because of other contraindication; I34.0 Nonrheumatic mitral (valve) insufficiency; I25.10 Atherosclerotic heart disease of native coronary artery without angina pectoris; I50.32 Chronic diastolic (congestive) heart failure; D64.9 Anemia, unspecified; K21.9 Gastro-esophageal reflux disease without esophagitis; Z95.2 Presence of prosthetic heart valve; E78.5 Hyperlipidemia, unspecified; E03.9 Hypothyroidism, unspecified; G47.33 Obstructive sleep apnea (adult) (pediatric); E11.9 Type 2 diabetes mellitus without complications; R53.83 Other fatigue; R06.02 Shortness of breath; Z79.4 Long term (current) use of insulin

== ENCOUNTER → 2017-11-07 | Outpatient (CLI) | payer OTHER, MEDICARE | LOC: BHFA 13:15 | PROVIDERS: ATTEND Internal Medicine Cardiovascular Disease | DX: I48.91 Unspecified atrial fibrillation (principal); R53.83 Other fatigue; Z95.2 Presence of prosthetic heart valve ==

== ENCOUNTER → 2018-01-02 | Outpatient (CLI) | payer OTHER, MEDICARE | LOC: FIMAGING 11:27 | PROVIDERS: ATTEND Nurse Practitioner Family | DX: R07.9 Chest pain, unspecified (principal); I48.0 Paroxysmal atrial fibrillation ==

== ENCOUNTER → 2018-01-09 | Outpatient (CLI) | payer OTHER, MEDICARE | LOC: BHFA 11:30 | PROVIDERS: ATTEND Internal Medicine Cardiovascular Disease | DX: R00.2 Palpitations (principal) ==

== ENCOUNTER → 2018-05-30 | Outpatient (CLI) | payer OTHER, MEDICARE | LOC: BHFA 10:00 | PROVIDERS: ATTEND Internal Medicine Cardiovascular Disease | DX: R06.02 Shortness of breath (principal); I05.9 Rheumatic mitral valve disease, unspecified ==